=== PATIENT | male | born 1960 | race Caucasian/White ===

== ENCOUNTER 2018-07-02 03:13 | Emergency (ER) | payer SELFPAY ==
[2018-07-02] MEDS ORDERED: Bupivacaine 0.5% 10 ML SDV INJECT ONE (03:24)
[2018-07-02] MEDS ORDERED: Diphtheria,Pertussis(Acell),Tetanus Vaccine 0.5 ML Syringe IM ONE (03:33)
--- NOTE | 2018-07-02 03:33 | EDM.PDOC ---
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 A nylon rope on the dust bag became entangled in the rubber belt that Foy the tiana. He states when he went to grab the rope his Lt hand became entangled in the rubber belt on the tiana with resultant injuries to his left second ,third and fourth distal fingers. They had to cut the belt and rope from the bottom of the tiana to free his left hand. Injury occurred about 2 hours prior to coming to the ED.He is unsure when his last tetanus toxoid was recieved. Denies any other injuries. Patient is right-hand dominant. Onset: Today Onset Date: 07/02/18 Onset Time: 01:00 Duration: Hour(s): Location: Reports: Upper Extremity, Left (Injuries primarily to the distal aspects of his left second third and fourth fingers) Quality: Reports: Ache (Agrees to the distal aspects of the left second third and fourth fingers.), Throbbing Severity: Moderate Improves with: Reports: None Worsens with: Reports: None Context: Reports: Trauma (Fingers were caught in a rubber belt on a casino floor person.). Denies: Activity, Exercise, Lifting, Sick Contact Associated Symptoms: Reports: No Other Symptoms Treatments SKIRT TRIMMER: Reports: Other (see below) (None.) Left Finger-Middle Pain Score (Numeric/FACES): 10 - Related Data Allergies Allergy/AdvReac Type Severity Reaction Status Date / Time Penicillins Allergy Airway Verified 07/02/18 03:20 Tightness Home Meds: Home Meds Doxycycline [Vibramycin] 100 mg PO BID #24 cap 07/02/18 [Rx] oxyCODONE HCl/Acetaminophen [Percocet 5-325 mg Tablet] 1 - 2 each PO Q4H PRN # 20 tablet 07/02/18 [Rx] Past Medical History - Past Health History Medical/Surgical History: Denies Medical/Surgical History Social & Family History - Living Situation & Occupation Living situation: Reports: Occupation: Employed Review of Systems - Review of Systems Review Of Systems: See Below Constitutional: Denies: Chills, Diaphoresis, Fever Eyes: Reports: Glasses Mouth/Throat: Reports: No Symptoms Respiratory: Reports: No Symptoms Cardiovascular: Reports: No Symptoms GI/Abdominal: Reports: No Symptoms Musculoskeletal: Reports: Hand Pain (See history of present illness) Skin: Reports: No Symptoms Neurological: Reports: No Symptoms Psychiatric: Reports: No Symptoms ED EXAM, GENERAL - Physical Exam Exam: See Below Exam Limited By: No Limitations (Patient does appear to be mildly mentally handicapped.) General Appearance: Alert, WD/WN, Moderate Distress Respiratory/Chest: No Respiratory Distress, Lungs Clear, Normal Breath Sounds, Chest Non-Tender Cardiovascular: Normal Peripheral Pulses, No Edema, No Gallop, No Murmur, Tachycardia Peripheral Pulses: 3+: Radial (L), Radial (R) Extremities: Other (Examination was limited to the left hand which is the only injury. Patient has an obvious deformity to the distal aspect of the left second finger. Deep laceration adjacent to the nailbed and volarly on the distal fourth finger.) Neurological: Alert, Oriented, CN II-XII Intact, Normal Cognition Psychiatric: Normal Affect, Anxious Skin Exam: Warm, Dry, Other (Lacerations second and fourth fingers left hand distally.). No: Intact ED TRAUMA EXTREMITY PROCEDURES - Laceration/Wound Repair Left Distal Digit - 4th (Ring) Lac/Wound Length In cm: 1.5 Appearance: Subcutaneous, Stellate, Clean Distal NVT: Neuro & Vascular Intact Anesthetic Type: Local Local Anesthesia - Lidocaine (Xylocaine): 1% Plain Local Anesthetic Volume: 2cc Skin Prep: Saline Exploration/Debridement/Repair: Minimal Debridement Closed With: Sutures Suture Size: 3-0 # of Sutures: 4 Suture Type: Nylon, Interrupted, Simple Course - Vital Signs Last Recorded V/S: Last Vital Signs Temp 37.1 C 07/02/18 03:17 Pulse 107 H 07/02/18 03:17 Resp 17 07/02/18 03:17 BP 161/87 H 07/02/18 03:17 Pulse Ox 95 07/02/18 03:17 - Orders/Labs/Meds Orders: Active Orders 24 hr Category Date Time Status Vaccines to be Administered [RC] PER UNIT ROUTINE Care 07/02/18 03:33 Active Hand Comp Min 3V Lt [CR] Stat Exams 07/02/18 03:24 Taken Meds: Medications Discontinued Medications Generic Name Dose Route Start Last Admin Trade Name Anika PRN Reason Stop Dose Admin Bupivacaine HCl 20 ml 07/02/18 03:24 07/02/18 03:27 Sensorcaine-Mpf 0.5% INJECT 07/02/18 03:25 20 ml ONETIME ONE Administration Diphtheria/Tetanus/Acell Pertussis 0.5 ml 07/02/18 03:33 07/02/18 03:55 Adacel IM 07/02/18 03:34 0.5 ml .ONCE ONE Administration Doxycycline Hyclate 200 mg 07/02/18 05:07 Vibramycin PO 07/02/18 05:08 ONETIME ONE Ondansetron HCl 4 mg 07/02/18 05:08 Zofran Odt PO 07/02/18 05:09 ONETIME ONE Oxycodone/Acetaminophen 2 tab 07/02/18 05:07 Percocet 325-5 Mg PO 07/02/18 05:08 ONETIME ONE - Radiology Interpretation Free Text/Narrative:: 58-year-old male presents to the ED with an injury to his left hand involving the second and fourth distal fingers. 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 He states nylon rope on the dust bag became entangled in the rubber belt that propels the he reached down to permit loose and his hand was sucked into the belt and he suffered injuries to the distal aspects of his left second third and fourth fingers. The second finger shows deformity at the DIP joint with deep laceration. Suspect fracture. Laceration to the fourth finger adjacent to the nailbed and traveling volarly on the radial aspect of the finger. approximately 1.5 cm. Plan: Bupivacaine to provide digital block to the right fourth finger. Will require laceration repair to both fingers. T Dap will be updated and she can't remember when his last shot was. X-ray of the left hand to be obtained. - Re-Assessments/Exams Free Text/Narrative Re-Assessment/Exam: 07/02/18 03:35: Digital block performed using 0.5% Marcaine at the base of the left second finger to provide digital block. 07/02/18 04:03 x-rays of the left hand confirm a fracture of the mid distal phalanx of the second finger. It is mildly displaced but will come back together once the laceration is repaired. 07/02/18 05:15: Laceration Lt 2nd finger with open fracture of the distal phalanx cleansed and then irrigated. Laceration is 2.5 cm. It was debrided and then laceration repaired 9 sutures in total. Used a combination of 4-0 and 3-O sutures to provide repair. Several sutures go through the nail bed to approximate the fracture. Laceration to the Lt fourth finger 1.5 cm in length sutured 4 with 3-0 Ethilon suture. Patient was given initial dose of antibiotic in the ED. He will be placed on doxycycline 100 mg twice daily for the next 12 days to prevent secondary wound infection. Wounds were cleansed and then dressed with topical antibiotic ointment. Fingercot dressing placed on the second finger. He will be splinted in the aluminum splint to place the distal phalanx and a slightly extensor position. Advised him to follow-up with Dr. Moss --orthopedic surgeon in 12 days time for suture removal. He will then follow him along to make sure the fracture heals appropriately. Departure - Departure Time of Disposition: 05:20 Disposition: Home, Self-Care 01 Condition: Fair Clinical Impression: Laceration of finger of left hand Qualifiers: Encounter type: initial encounter Finger: ring finger Damage to nail status: without damage Foreign body presence: without foreign body Qualified Code(s): S61.215A - Laceration without foreign body of left ring finger without damage to nail, initial encounter Fracture of distal phalanx of finger, open Qualifiers: Encounter type: initial encounter Finger: index finger Fracture alignment: displaced Laterality: left Qualified Code(s): S62.631B - Displaced fracture of distal phalanx of left index finger, initial encounter for open fracture - Discharge Information *PRESCRIPTION DRUG MONITORING PROGRAM REVIEWED*: Not Applicable *COPY OF PRESCRIPTION DRUG MONITORING REPORT IN PATIENT [facility]SCAR: Not Applicable Prescriptions: Doxycycline [Vibramycin] 100 mg PO BID #24 cap oxyCODONE HCl/Acetaminophen [Percocet 5-325 mg Tablet] 1 - 2 each PO Q4H PRN # 20 tablet PRN Reason: pain relief. Instructions: Finger Fracture, Sutured Wound Care Referrals: PCP,None [Primary Care Provider] - Forms: ED Department Discharge Additional Instructions: Evaluation in the emergency room today in regards to injuries to your left fingers --second and fourth.. Injuries occurred when your hand became entangled in the belt drive of a commercial power tiana. X-rays reveal that you broke the distal phalanx mid shaft on the second finger. 2.5 cm laceration associated with injury to the left second finger exposing the broken bone. Wound was cleansed and then sutured under digital block. 9 sutures were placed. You also suffered a 1.5 cm laceration to the fourth distal finger. No broken bones were identified on x-ray. Laceration was repaired under local anesthetic. Treatment at home is to daily cleanse the wounds with soap and water. Showering is okay, or you can soak them in water with a little dish soap for about 2 minutes. Then apply antibiotic ointment such as bacitracin or Polysporin to the lacerations and bandage them to keep clean . The second or index finger requires a splint to be worn at all times except to cleanse the wound for the next 5-6 weeks. Sutures are going to require removal in 12 days time. Suggest making an appointment to see --orthopedic surgeon on the second floor of the [facility]. He will follow your wounds to make sure that the fracture heals appropriately without any infection. Please call [phone] to arrange an appointment in 12 days time. You should phone this morning to make an appointment. You need to take antibiotic doxycycline 100 mg twice daily for the next 12 days to prevent bone infection of the second finger. Pain medication is to be Percocet 5/325 mg one or 2 tablets every 4-6 hours as needed for pain relief for the next 3-4 days and then only as needed. After this she may use Motrin 600 mg every 6 hours for pain relief. - My Orders Last 24 Hours: My Active Orders 07/02/18 03:24 Hand Comp Min 3V Lt [CR] Stat 07/02/18 03:33 Vaccines to be Administered [RC] PER UNIT ROUTINE - Assessment/Plan Last 24 Hours: My Active Orders 07/02/18 03:24 Hand Comp Min 3V Lt [CR] Stat 07/02/18 03:33 Vaccines to be Administered [RC] PER UNIT ROUTINE ED LACERATION PROCEDURES - Laceration/Wound Repair Left Distal Digit - 4th (Ring) Lac/wound length in cm: 2.5 (Left fourth distal finger) Appearance: Subcutaneous, Clean Distal NVT: Neuro & Vascular Intact, Other ((Fractured distal phalanx) Anesthetic Type: Digital Local Anesthesia - Bupivicaine (Marcaine): 0.5% Plain Local Anesthetic Volume: Other (6 mL) Skin Prep: Saline Exploration/Debridement/Repair: Wound Explored, Minimal Debridement Closed with: Sutures Suture Size: 3-0 # of Sutures: 9 (Used a combination of 4-0 and 3-0 sutures to provide wound closure. Sutures go through the fingernail to approximate the fracture mid shaft of the distal phalanx which is right at the base of the fingernail.) Suture Type: Nylon, Interrupted, Simple
[2018-07-02] MEDS ORDERED: Acetaminophen/oxyCODONE 325-5 MG Tab PO ONE (05:07)
[2018-07-02] MEDS ORDERED: Doxycycline 100 MG Cap PO ONE (05:07)
[2018-07-02] MEDS ORDERED: Ondansetron 4 MG Tab.DIS PO ONE (05:08)
--- NOTE | 2018-07-02 09:17 | CR ---
Left hand: Three views of the left hand were obtained. Comparison: No previous scan study. Fracture is identified within the distal phalanx of the second finger. Soft tissue swelling is noted. Mild degenerative change is noted within the DIP joints. No additional fracture or other bony abnormality is seen. Impression: 1. Distal phalanx fracture within the left second finger with adjacent soft tissue swelling. 2. Mild degenerative change. Diagnostic code #3
== END 2018-07-02 05:24 | disposition home or self-care (01) ==
LOC: JD.ED 03:13
DX: S62.631B Displaced fracture of distal phalanx of left index finger, initial encounter for open fracture (principal); S61.215A Laceration without foreign body of left ring finger without damage to nail, initial encounter; Z88.0 Allergy status to penicillin; W27.8XXA Contact with other nonpowered hand tool, initial encounter; Z23 Encounter for immunization
CPT/HCPCS: 12002; 73130; 90471; 90700; 99283; A9270; J3490; 12001; 12032